=== PATIENT | female | born 1965 | race Hispanic/Latino ===

== ENCOUNTER → 2019-10-27 | Outpatient (CLI) | payer OTHER ==
--- NOTE | 2019-10-28 08:48 | Diagnostic Imaging Report ---
#[id number] - MGDXBIL #BILATERAL FIRST EVER DIGITAL DIAGNOSTIC MAMMOGRAM WITH CAD: 10/27/2019 CLINICAL: Palpable lump right breast. No prior exams were available for comparison. There are scattered fibroglandular elements in both breasts. Current study was also evaluated with a Computer Aided Detection (CAD) system. There is an irregular high density mass with a spiculated margin in the right breast at 11 o'clock posterior depth. No other significant masses, calcifications, or other findings are seen in either breast. IMPRESSION: INCOMPLETE: NEEDS ADDITIONAL IMAGING EVALUATION The irregular high density mass in the right breast is indeterminate. An ultrasound is recommended and will be performed during the same visit. KENYA GABRIEL M.D. kw/:10/27/2019 14:12:30 Rn Emergency Room: Clarissa CASTILLO)(Michelle), [facility] Mammogram BI-RADS: 0 Indeterminate
--- NOTE | 2019-10-28 08:48 | Diagnostic Imaging Report ---
#[id number] - USBRELIMRT ULTRASOUND OF THE RIGHT BREAST : 10/27/2019 Comparison is made to exam dated: 10/27/2019 mammogram - [facility]. Color flow and real-time ultrasound were performed on the right breast. Pete scale images of the real-time examination were reviewed. There is a 1.5 cm irregular mass with a spiculated margin in the right breast at 11 o'clock posterior depth. This irregular mass is hypoechoic with posterior acoustic shadowing. This correlates as palpated and with mammography findings. Color flow imaging demonstrates that there is vascularity present. There is an enlarged right axillary lymph node measuring 1.6 x 1.3cm. IMPRESSION: SUSPICIOUS OF MALIGNANCY - FOLLOW-UP RECOMMENDED The 1.5 cm irregular mass in the right breast is suspicious of malignancy. An enlarged axillary lymph node measures 1.6 x 1.3cm. An ultrasound guided biopsy is recommended. The patient has been or will be contacted. KENYA GABRIEL M.D. kw/:10/27/2019 14:16:53 Supervisor Patching: EDNA BOLIVAR [facility], [facility] letter sent: Biopsy Required Ultrasound BI-RADS: 4 Suspicious abnormality
== END ==
LOC: MAMMO 11:44
PROVIDERS: ATTEND Family Medicine
DX: N63.10 Unspecified lump in the right breast, unspecified quadrant (principal)
CPT/HCPCS: 77066

== ENCOUNTER → 2019-11-03 | Outpatient (CLI) | payer OTHER ==
[~2019-11-03] MED LIST: LIDOCAINE HCL 1% LOCAL INJ 20 ML VIAL ONE
== END ==
LOC: US 11:56
PROVIDERS: ATTEND Family Medicine
DX: N63.10 Unspecified lump in the right breast, unspecified quadrant (principal)
CPT/HCPCS: 19083; 77065; 88305; J2001; A4648